=== PATIENT | female | born 1965 | race Caucasian/White ===

== ENCOUNTER 2018-11-13 16:12 | Inpatient (IN) | payer BC, OTHER ==
[~2018-11-13 16:12] MED LIST: BUPIVACAINE HCL/PF (5 MG/ML) 30 ML VIAL IJ ONE
[2018-11-13] MEDS ORDERED: SODIUM CHLORIDE 1,000 ML IV STA (16:17)
--- NOTE | 2018-11-13 16:34 | PDOC ---
History of Present Illness - General Stated Complaint: ABDOMINAL PAIN - History of Present Illness Initial Comments: 11/13/18 16:42 Ms. Nicholson is a 53 yo female w/ pmh of squamous cell skin removal (L arm), and s/p R oophorectomy for benign mass and 2 c-sections 20 and 25 years ago who presents for evaluation of acute appendicitis read on CT scan performed today for RLQ abdominal pain for 1 week. Patient reports pain level is very low currently. Has no other complaints at this time. Last meal was this morning at 0830. The patient denies chest pain, shortness of breath, headache and dizziness. Denies fever, chills, nausea, vomit, diarrhea and constipation. Denies dysuria, frequency, urgency and hematuria. Past History - Past Medical History Allergies/Adverse Reactions: Allergies Allergy/AdvReac Type Severity Reaction Status Date / Time No Known Allergies Allergy Unverified 12/23/13 20:38 Home Medications: Ambulatory Orders NK [No Known Home Medication] 11/13/18 - Suicide/Smoking/Psychosocial Hx Smoking History: Never smoked Hx Alcohol Use: No Substance Use Type: None Review of Systems - Review of Systems Comments:: 11/13/18 16:53 GENERAL/CONSTITUTIONAL: No fever or chills. No weakness. HEAD, EYES, EARS, NOSE AND THROAT: No change in vision. No ear pain or discharge. No sore throat. CARDIOVASCULAR: No chest pain or shortness of breath RESPIRATORY: No cough, wheezing, or hemoptysis. GASTROINTESTINAL: +RLQ pain as described. No nausea, vomiting, diarrhea or constipation. GENITOURINARY: No dysuria, frequency, or change in urination. MUSCULOSKELETAL: No joint or muscle swelling or pain. No neck or back pain. SKIN: No rash NEUROLOGIC: No headache, vertigo, loss of consciousness, or change in strength/ sensation. ENDOCRINE: No increased thirst. No abnormal weight change HEMATOLOGIC/LYMPHATIC: No anemia, easy bleeding, or history of blood clots. ALLERGIC/IMMUNOLOGIC: No hives or skin allergy. *Physical Exam - Physical Exam Comments: 11/13/18 16:54 GENERAL: Awake, alert, and fully oriented, in no acute distress HEAD: No signs of trauma, normocephalic, atraumatic EYES: PERRLA, EOMI, sclera anicteric, conjunctiva clear ENT: Auricles normal inspection, hearing grossly normal, nares patent, oropharynx clear without exudates. Moist mucosa NECK: Normal ROM, supple, no lymphadenopathy, JVD, or masses LUNGS: No distress, speaks full sentences, clear to auscultation bilaterally HEART: Regular rate and rhythm, normal S1 and S2, no murmurs, rubs or gallops, peripheral pulses normal and equal bilaterally. ABDOMEN: +RLQ TTP. Soft, normoactive bowel sounds. No guarding, no rebound. No masses EXTREMITIES: Normal inspection, Normal range of motion, no edema. No clubbing or cyanosis. NEUROLOGICAL: Cranial nerves II through XII grossly intact. Normal speech, normal gait, no focal sensorimotor deficits SKIN: Warm, Dry, normal turgor, no rashes or lesions noted. ED Treatment Course - LABORATORY CBC & Chemistry Diagram: 11/13/18 16:30 11/13/18 16:30 Medical Decision Making - Medical Decision Making 11/13/18 16:54 Ms. Nicholson is a 53 yo female w/ pmh as descrive who presents with positive outside CT read of acute appendicitis. Patient pre-op workup started upon arrival. Surgery made aware and onsite quickly for evaluation. left to get images. 11/13/18 18:49 Images w/ patient at bedside. Patient admitted to surgery for operative management tonight. *DC/Admit/Observation/Transfer Diagnosis at time of Disposition: Appendicitis Qualifiers: Appendicitis type: acute appendicitis Acute appendicitis type: unspecified acute appendicitis type Qualified Code(s): K35.80 - Unspecified acute appendicitis - Discharge Dispostion Disposition: HOME Condition at time of disposition: Improved Decision to Admit order: Yes - Referrals - Patient Instructions - Post Discharge Activity
[2018-11-13 17:01] VITALS: BMI 30.1
[2018-11-13 17:03] LABS: BASO % 0.5 % (0-2.0); EOS % 0.7 % (0-4.5); HEMATOCRIT 42.2 % (32.4-45.2); HEMOGLOBIN 14.2 GM/dL (10.7-15.3); MCH 29.4 pg (25.7-33.7); MCHC 33.8 g/dl (32.0-36.0); MEAN PLT VOLUME 7.6 fl (7.5-11.1); MONO % 11.4 % (3.8-10.2); NEUT % 69.4 % (42.8-82.8); PLATELET COUNT 357 K/MM3 (134-434); RBC 4.84 M/mm3 (3.60-5.2); RDW 12.9 % (11.6-15.6); WHITE BLOOD COUNT 9.6 K/mm3 (4.0-10.0)
--- NOTE | 2018-11-13 17:03 | PDOC ---
Attending Attestation - Resident Resident Name: EarnestdoreneraquelBeRyan - ED Attending Attestation I have performed the following: I have examined & evaluated the patient, The case was reviewed & discussed with the resident, I agree w/resident's findings & plan - HPI HPI: 11/13/18 17:03 Ms. Nicholson is a 53 yo female w/ pmh of squamous cell skin removal (L arm), and s/p R oophorectomy for benign mass and 2 c-sections 20 and 25 years ago who presents for evaluation of acute appendicitis read on CT scan performed today for RLQ abdominal pain for 1 week. - Physicial Exam PE: 11/13/18 17:44 Agree with the resident's HPI and PE as documented in the electronic medical record. NAD, well appearing, EOMI, PERRL, nl conjunctiva, anicteric; neck supple. lungs clear, RRR, abdomen soft, RLQ tenderness to palp. Back nontender. BLOOM x4, no focal neuro deficits. No peripheral edema. normal color for ethnicity, WWP. - Medical Decision Making 11/13/18 17:44 hpi as documented VS reviewed, wnl CT a/p from outside rads with +appy Dr Mcclure consult, admit for appendectomy basic labs/preop workup initiated all unremarkable. analgesia, NPO, IV admit to Dr Mcclure for acute appy 11/13/18 17:45
[2018-11-13 17:13] LABS: INR 1.08 (0.83-1.09); PROTHROMBIN TIME (PATIENT) 12.8 SEC (9.7-13.0)
[2018-11-13 17:16] LABS: ACTIVATED PTT 35.9 SECONDS (25.2-36.5); MAGNESIUM 2.5 mg/dL (1.8-2.4)
[2018-11-13] MEDS ORDERED: ONDANSETRON 4 MG/2 ML VIAL IVPUSH PRN ×2 (17:17→21:13)
[2018-11-13] MEDS ORDERED: morphine SULFATE 4 MG/ML VIAL IVPUSH PRN ×2 (17:17→23:49)
[2018-11-13 17:21] LABS: BILIRUBIN,TOTAL 0.4 mg/dL (0.2-1); CALCIUM 9.4 mg/dL (8.5-10.1); CREATININE 0.8 mg/dL (0.55-1.3); POTASSIUM 3.8 mmol/L (3.5-5.1)
[2018-11-13] MEDS ORDERED: SODIUM CHLORIDE 1,000 ML IV SCH ×2 (17:30→23:49)
--- NOTE | 2018-11-13 17:38 | HP ---
Admitting History and Physical - Admission Chief Complaint: RLQ abdominal Pain History of Present Illness: 53yo female PMH squamous cell skin removal (L arm), and s/p R oophorectomy for benign mass and 2 c-sections 20 and 25 years ago presents with intermittent right lower quadrant abdominal pain for 1.5 weeks worsening today. Acute appendicitis read on CT scan performed today for RLQ abdominal pain for 1.5 weeks. Patient reports pain level is very low currently. Has no other complaints at this time. Last meal was this morning at 0830. We were called to assess. History Source: Patient, Medical Record Limitations to Obtaining History: No Limitations - Past Surgical History Past Surgical History: Yes: (X 2), Oopherectomy (right) - Smoking History Smoking history: Never smoked Have you smoked in the past 12 months: No - Alcohol/Substance Use Hx Alcohol Use: No Home Medications - Allergies Allergies/Adverse Reactions: Allergies Allergy/AdvReac Type Severity Reaction Status Date / Time No Known Allergies Allergy Unverified 12/23/13 20:38 - Home Medications Home Medications: Ambulatory Orders NK [No Known Home Medication] 11/13/18 Review of Systems - Review of Systems Constitutional: reports: Chills. denies: Fever, Loss of Appetite Eyes: denies: Blind Spots, Recent Change in Vision HENT: denies: Difficult Swallowing, Throat Pain Neck: denies: Decreased ROM, Tenderness Cardiovascular: denies: Chest Pain, Palpitations Respiratory: denies: Cough, SOB Gastrointestinal: reports: Abdominal Pain. denies: Constipation, Diarrhea Genitourinary: denies: Dysuria, Flank Pain, Menses Breasts: reports: No Symptoms Reported. denies: Pain Integumentary: denies: Eczema, Pallor, Rash Neurological: denies: Seizure, Syncope Endocrine: denies: Unexplained Weight Gain, Unexplained Weight Loss Hematology/Lymphatic: denies: Easily Bruised, Excessive Bleeding Psychiatric: denies: Anxiety, Depression Physical Examination Vital Signs: Vital Signs Temperature 98.5 F 11/13/18 16:12 Pulse Rate 80 11/13/18 16:12 Respiratory Rate 16 11/13/18 16:12 Blood Pressure 130/80 11/13/18 16:12 O2 Sat by Pulse Oximetry (%) 100 11/13/18 16:12 Constitutional: Yes: Well Nourished, Calm, Mild Distress Eyes: Yes: Conjunctiva Clear, EOM Intact HENT: Yes: Atraumatic, Normocephalic Neck: Yes: Supple, Trachea Midline Cardiovascular: Yes: Regular Rate and Rhythm, S1, S2 Respiratory: Yes: Regular, CTA Bilaterally Gastrointestinal: Yes: Normal Bowel Sounds, Soft, Tenderness (RLQ, -psoas sign) , Tenderness, Rebound. No: Rectal Bleeding, Tenderness, Epigastrium, Vomiting ...Rectal Exam: Yes: Sphincter Tone Normal. No: Hemorrhoids/External, Mass Renal/: No: CVA Tenderness - Left, CVA Tenderness - Right Breast(s): No: Discharge from Nipple, Mass, Nipple Inversion Musculoskeletal: No: Muscle Pain, Muscle Weakness Extremities: No: Cool, Cyanosis Edema: No Peripheral Pulses WNL: Yes Peripheral Pulses: Left Radial: 2+, Right Radial: 2+, Left Doralis Pedis: 2+, Right Dorsalis Pedis: 2+, Left Femoral: 2+, Right Femoral: 2+ Neurological: Yes: Alert, Oriented Psychiatric: Yes: Alert, Oriented Labs: CBC, BMP 11/13/18 16:30 11/13/18 16:30 Imaging - Results Cat Scan: Pending, Report Reviewed, Image Reviewed (1.5cm edematous appendix with significnat fat stranding in the adjacent cecum) Problem List - Problems (1) Acute appendicitis with localized peritonitis without perforation Assessment/Plan: 53yo female with acute appendicititis with localized peritonitis, impending rupture NPO and IVF hydration IV antibiotics IV analgesia and antipyretic therapy Discussed with patient risks, benefits and alternatives of laparoscopic possible open appendectomy, including but not limited to bleeding, infection, injury to adjacent structures, leak or injury, intraabdominal abscess, incisional hernia, need for further procedures, ; alternatives include antibiotics, delayed or no surgery - risks of this include failure of nonoperative therapy, perforation, sepsis, recurrence, . Patient desires to proceed with operation - will take to OR for above. Informed consent signed for same. Thank you for the opportunity to participate in the care of this patient. Code(s): K35.30 - ACUTE APPENDICITIS WITH LOC PERITONITIS, W/O PERF OR GANGR Qualifiers: Appendicitis gangrene presence: without gangrene Appendicitis abscess presence: without abscess Qualified Code(s): K35.30 - Acute appendicitis with localized peritonitis, without perforation or gangrene (2) Abdominal pain in female patient Code(s): R10.9 - UNSPECIFIED ABDOMINAL PAIN (3) RLQ abdominal pain Code(s): R10.31 - RIGHT LOWER QUADRANT PAIN (4) RLQ abdominal tenderness Code(s): R10.813 - RIGHT LOWER QUADRANT ABDOMINAL TENDERNESS Qualifiers: Presence of rebound: present Qualified Code(s): R10.823 - Right lower quadrant rebound abdominal tenderness (5) Chronic appendicitis Code(s): K36 - OTHER APPENDICITIS
[2018-11-13] MEDS ORDERED: ACETAMINOPHEN INJECTION 100 ML IVPB ONE ×2 (18:37→23:40)
[2018-11-13] MEDS ORDERED: ACETAMINOPHEN 1000 MG/100 ML VIAL (NON FORMULARY) IVPB ONE (18:37)
[2018-11-13 19:20] LABS: URINE APPEARANCE CLEAR; URINE COLOR YELLOW; URINE GLUCOSE (UA) NEGATIVE (NEGATIVE)
[2018-11-13 19:21] LABS: URINE BILIRUBIN NEGATIVE (NEGATIVE); URINE KETONE TRACE (NEGATIVE); URINE NITRITE NEGATIVE (NEGATIVE); URINE PROTEIN NEGATIVE (NEGATIVE); URINE UROBILINOGEN 0.2 mg/dL (0.2-1.0)
[2018-11-13 19:22] LABS: URINE LEUK ESTERASE 1+ (NEGATIVE)
[2018-11-13 19:23] LABS: EPI CELLS 0.5 /HPF (0-5/HPF); HYALINE CASTS 0.73 /lpf (0-8); URINE BACTERIA 64.9 /hpf (NEGATIVE); URINE RBC 2.9 /hpf (0-4); URINE WBC 19.9 /hpf (0-5)
[2018-11-13] MEDS ORDERED: ACETAMINOPHEN 1000 MG/100 ML VIAL (NON FORMULARY) IVPB PRN ×2 (19:55→23:49)
--- NOTE | 2018-11-13 20:23 | OP ---
Operative Note - Note: Operative Date: 11/13/18 Pre-Operative Diagnosis: acute appendicitis with localized peritonitis Operation: laparoscopic appendectomy Findings: appendeix was densely adherent to the sidewall. base of cecum was stapled with 45mm endoGIA purple load Post-Operative Diagnosis: Same as Pre-op Surgeon: Yifan Mcclure Anesthesiologist/COMMISSIONER OF CONCILIATION: Rom Baker Anesthesia: General, Local Specimens Removed: appendix Estimated Blood Loss (mls): 15 Drains, Volume Out (mls): 200 (walton) Fluid Volume Replaced (mls): 1,300 Operative Report Dictated: Yes
[2018-11-13] MEDS ORDERED: LACTATED RINGERS SOLUTION 1,000 ML IV SCH ×2 (21:15→23:49)
[2018-11-13] MEDS ORDERED: MIDAZOLAM HCL 2 MG/2 ML SINGLE DOSE VIAL ONE (21:36)
[2018-11-13] MEDS ORDERED: ONDANSETRON 4 MG/2 ML VIAL ONE (22:17)
[2018-11-13] MEDS ORDERED: DEXAMETHASONE SOD PHOSPHATE 4 MG/1 ML VIAL ONE (22:17)
[2018-11-13] MEDS ORDERED: PROPOFOL 20 ML ONE ×2 (22:18)
[2018-11-13] MEDS ORDERED: GLYCOPYRROLATE 0.2 MG/1 ML VIAL ONE (22:26)
[2018-11-13] MEDS ORDERED: NEOSTIGMINE METHYLSULFATE 0.5 MG/1 ML - 10 ML MDV ONE (22:26)
[2018-11-13] MEDS ORDERED: DESFLURANE GAS 240 ML BOTTLE IH ONE (22:29)
[2018-11-13] MEDS ORDERED: BUPIVACAINE HCL/PF (5 MG/ML) 30 ML VIAL IJ ONE (23:15)
--- NOTE | 2018-11-14 09:59 | CON.ID ---
Consult Consult Specialty:: infectious diseases Referred by:: Reason for Consultation:: appendicitis - History of Present Illness Chief Complaint: abd pain History of Present Illness: 53yo female PMH squamous cell skin removal (L arm), and s/p R oophorectomy for benign mass and 2 c-sections 20 and 25 years ago presents with intermittent right lower quadrant abdominal pain for 1.5 weeks worsening today. Acute appendicitis read on CT scan performed today for RLQ abdominal pain for 1.5 weeks. Patient was seen by surgery and underwent appendectomy patient was started on levaquin and flagyl - History Source History Provided By: Patient Limitations to Obtaining History: No Limitations - Past Medical History ...LMP: 06/10/16 ...: No - Past Surgical History Past Surgical History: Yes: (X 2), Oopherectomy (right) - Alcohol/Substance Use Hx Alcohol Use: No - Smoking History Smoking history: Never smoked Have you smoked in the past 12 months: No Home Medications - Allergies Allergies/Adverse Reactions: Allergies Allergy/AdvReac Type Severity Reaction Status Date / Time No Known Allergies Allergy Unverified 12/23/13 20:38 - Home Medications Home Medications: Ambulatory Orders NK [No Known Home Medication] 11/13/18 Review of Systems - Review of Systems Constitutional: reports: No Symptoms Eyes: reports: No Symptoms HENT: reports: No Symptoms Neck: reports: No Symptoms Cardiovascular: reports: No Symptoms Respiratory: reports: No Symptoms Gastrointestinal: reports: Abdominal Pain Genitourinary: reports: No Symptoms Musculoskeletal: reports: No Symptoms Integumentary: reports: No Symptoms Neurological: reports: No Symptoms Endocrine: reports: No Symptoms Hematology/Lymphatic: reports: No Symptoms Psychiatric: reports: No Symptoms Physical Exam Vital Signs: Vital Signs Temperature 98.2 F 11/14/18 09:00 Pulse Rate 69 11/14/18 09:00 Respiratory Rate 18 11/14/18 09:00 Blood Pressure 120/74 11/14/18 09:00 O2 Sat by Pulse Oximetry (%) 100 11/14/18 09:00 Constitutional: Yes: Well Nourished, Calm, Mild Distress Cardiovascular: Yes: Regular Rate and Rhythm Respiratory: Yes: Regular, CTA Bilaterally Gastrointestinal: Yes: Soft, Hypoactive Bowel Sounds Musculoskeletal: Yes: WNL Extremities: Yes: WNL Wound/Incision: Yes: Clean/Dry Neurological: Yes: Alert, Oriented Psychiatric: Yes: Alert, Oriented Labs: CBC, BMP 11/13/18 16:30 11/13/18 16:30 Imaging - Results Chest X-ray: Report Reviewed, Image Reviewed Cat Scan: Report Reviewed, Image Reviewed Assessment/Plan Problem List - Problems (1) Acute appendicitis with localized peritonitis without perforation Code(s): K35.30 - ACUTE APPENDICITIS WITH LOC PERITONITIS, W/O PERF OR GANGR Qualifiers: Appendicitis gangrene presence: without gangrene Appendicitis abscess presence: without abscess Qualified Code(s): K35.30 - Acute appendicitis with localized peritonitis, without perforation or gangrene (2) Abdominal pain in female patient Code(s): R10.9 - UNSPECIFIED ABDOMINAL PAIN (3) RLQ abdominal pain Code(s): R10.31 - RIGHT LOWER QUADRANT PAIN (4) RLQ abdominal tenderness Code(s): R10.813 - RIGHT LOWER QUADRANT ABDOMINAL TENDERNESS Qualifiers: Presence of rebound: present Qualified Code(s): R10.823 - Right lower quadrant rebound abdominal tenderness (5) Chronic appendicitis Code(s): K36 - OTHER APPENDICITIS plan continue abx for now will await patient starting orally if tolerated orally can change to augmentin if completely clean surgery will stop abx
--- NOTE | 2018-11-14 10:18 | PN ---
Progress Note, Physician Chief Complaint: abdominal pain History of Present Illness: STable post operatively - Current Medication List Current Medications: Active Medications Acetaminophen (Ofirmev Injection -) 1,000 mg IVPB Q6H PRN PRN Reason: PAIN LEVEL 1-5 Last Admin: 11/13/18 23:45 Dose: 1,000 mg Metronidazole (Flagyl 500mg Premixed Ivpb -) 500 mg in 100 mls @ 100 mls/hr IVPB Q8H-IV CHERYL Last Admin: 11/14/18 09:04 Dose: 100 mls/hr Lactated Ringer's (Lactated Ringers Solution) 1,000 mls @ 75 mls/hr IV ASDIR CHERYL Last Admin: 11/14/18 00:30 Dose: 75 mls/hr Morphine Sulfate (Morphine Sulfate) 4 mg IVPUSH Q4H PRN PRN Reason: PAIN LEVEL 7 - 10 - Objective Vital Signs: Vital Signs Temperature 98.2 F 11/14/18 09:00 Pulse Rate 69 11/14/18 09:00 Respiratory Rate 18 11/14/18 09:00 Blood Pressure 120/74 11/14/18 09:00 O2 Sat by Pulse Oximetry (%) 100 11/14/18 09:00 Labs: CBC, BMP 11/13/18 16:30 11/13/18 16:30 INR, PTT INR 1.08 (0.83-1.09) 11/13/18 16:30 Problem List - Problems (1) Acute appendicitis with localized peritonitis without perforation Assessment/Plan: 53yo female with acute appendicititis with localized peritonitis, impending rupture POD#1 s/p lap appendectomy diet as tolerated ambulate continue oral antibiotcs discharge in AM . Code(s): K35.30 - ACUTE APPENDICITIS WITH LOC PERITONITIS, W/O PERF OR GANGR Qualifiers: Appendicitis gangrene presence: without gangrene Appendicitis abscess presence: without abscess Qualified Code(s): K35.30 - Acute appendicitis with localized peritonitis, without perforation or gangrene (2) Abdominal pain in female patient Code(s): R10.9 - UNSPECIFIED ABDOMINAL PAIN (3) RLQ abdominal pain Code(s): R10.31 - RIGHT LOWER QUADRANT PAIN (4) RLQ abdominal tenderness Code(s): R10.813 - RIGHT LOWER QUADRANT ABDOMINAL TENDERNESS Qualifiers: Presence of rebound: present Qualified Code(s): R10.823 - Right lower quadrant rebound abdominal tenderness (5) Chronic appendicitis Code(s): K36 - OTHER APPENDICITIS
[2018-11-14 11:37] LABS: BASO % 0.1 % (0-2.0); HEMATOCRIT 36.3 % (32.4-45.2); HEMOGLOBIN 12.6 GM/dL (10.7-15.3); LYMPH % 8.1 % (8-40); MCH 29.8 pg (25.7-33.7); MCHC 34.6 g/dl (32.0-36.0); MEAN CELL VOLUME 86.1 fl (80-96); MEAN PLT VOLUME 7.9 fl (7.5-11.1); MONO % 4.6 % (3.8-10.2); NEUT % 87.2 % (42.8-82.8); PLATELET COUNT 357 K/MM3 (134-434); RBC 4.22 M/mm3 (3.60-5.2); RDW 12.6 % (11.6-15.6)
--- NOTE | 2018-11-14 13:36 | EKG ---
Test Reason : Blood Pressure : / mmHG Vent. Rate : 084 BPM Atrial Rate : 084 BPM P-R Int : 142 ms QRS Dur : 080 ms QT Int : 350 ms P-R-T Axes : 034 020 039 degrees QTc Int : 413 ms NORMAL SINUS RHYTHM NORMAL ECG NO PREVIOUS ECGS AVAILABLE Confirmed by ALONZO HARVEY MD ([id number]) on 11/14/2018 1:36:42 PM Referred By: Confirmed By:ALONZO HARVEY MD
--- NOTE | 2018-11-14 13:43 | PN ---
Progress Note, Physician Chief Complaint: s/p lap appendectomy post op day one History of Present Illness: under general anesthesia - Current Medication List Current Medications: Active Medications Acetaminophen (Ofirmev Injection -) 1,000 mg IVPB Q6H PRN PRN Reason: PAIN LEVEL 1-5 Last Admin: 11/13/18 23:45 Dose: 1,000 mg Metronidazole (Flagyl 500mg Premixed Ivpb -) 500 mg in 100 mls @ 100 mls/hr IVPB Q8H-IV CHERYL Last Admin: 11/14/18 09:04 Dose: 100 mls/hr Lactated Ringer's (Lactated Ringers Solution) 1,000 mls @ 75 mls/hr IV ASDIR CHERYL Last Admin: 11/14/18 00:30 Dose: 75 mls/hr Morphine Sulfate (Morphine Sulfate) 4 mg IVPUSH Q4H PRN PRN Reason: PAIN LEVEL 7 - 10 - Objective Vital Signs: Vital Signs Temperature 98.2 F 11/14/18 09:00 Pulse Rate 69 11/14/18 09:00 Respiratory Rate 18 11/14/18 09:00 Blood Pressure 120/74 11/14/18 09:00 O2 Sat by Pulse Oximetry (%) 100 11/14/18 09:00 Constitutional: Yes: Well Nourished Cardiovascular: Yes: WNL Respiratory: Yes: WNL Gastrointestinal: Yes: WNL Labs: CBC, BMP 11/14/18 10:45 11/13/18 16:30 INR, PTT INR 1.08 (0.83-1.09) 11/13/18 16:30 Assessment/Plan No acute adverse effect of anesthetic, no further intervention by dept of anesthesiology
[2018-11-14] MEDS ORDERED: SODIUM CHLORIDE 1,000 ML IV SCH (18:23)
--- NOTE | 2018-11-15 10:19 | DS ---
Physical Examination Vital Signs: Vital Signs Temperature 98.1 F 11/15/18 06:00 Pulse Rate 63 11/15/18 06:00 Respiratory Rate 18 11/15/18 06:00 Blood Pressure 103/61 11/15/18 06:00 O2 Sat by Pulse Oximetry (%) 100 11/14/18 21:00 Findings/Remarks: stable, tolerating diet, complains of minimal rlq pain Constitutional: Yes: Well Nourished, No Distress, Calm Eyes: Yes: Conjunctiva Clear, EOM Intact HENT: Yes: Atraumatic, Normocephalic Neck: Yes: Supple, Trachea Midline Cardiovascular: Yes: Regular Rate and Rhythm, S1, S2 Respiratory: Yes: Regular, CTA Bilaterally Gastrointestinal: Yes: Normal Bowel Sounds, Soft, Tenderness (incisional) ...Rectal Exam: Yes: Deferred Renal/: No: CVA Tenderness - Left, CVA Tenderness - Right Musculoskeletal: No: Muscle Pain, Muscle Weakness Extremities: No: Cool, Cyanosis Edema: No Peripheral Pulses WNL: Yes Peripheral Pulses: Left Radial: 2+, Right Radial: 2+, Left Doralis Pedis: 2+, Right Dorsalis Pedis: 2+, Left Femoral: 2+, Right Femoral: 2+ Wound/Incision: Yes: Clean/Dry, Well Approximated Neurological: Yes: Alert, Oriented Psychiatric: Yes: Alert, Oriented Labs: CBC, BMP 11/14/18 10:45 11/13/18 16:30 Discharge Summary Reason For Visit: APPENDICITIS Current Active Problems Abdominal pain in female patient (Acute) Acute appendicitis with localized peritonitis without perforation (Acute) Appendicitis (Acute) Chronic appendicitis (Acute) RLQ abdominal pain (Acute) RLQ abdominal tenderness (Acute) Procedures: Principal: Laparoscopic appendectomy Hospital Course: Admitted for emergency surgery, uneventful procedure. stable for discharge home Condition: Improved - Instructions Diet, Activity, Other Instructions: Postoperative instructions: You had a laparoscopic appendectomy on 11/13/[address] Yifan Mcclure of [facility]. Activity: Resume your usual activities gradually, but no heavy exertion or lifting more than 10-15 pounds for 1 month. Remove dressings 48 hours after surgery; sticky tapes underneath will fall off by themselves. You may shower daily starting then, just pat the incision areas dry. No bath or swimming until skin incisions have healed. Eat lightly at first, but advance to your usual diet as tolerated. Pain: For pain, you may use and alternate Tylenol (acetaminophen) 1-2 pills and/ or ibuprofen 200 mg (1-3 pills) every 6 hours each as needed; this means that you can take one OR the other at 3-hour intervals. If you are prescribed a Tylenol/narcotic combination for severe pain, use it instead of plain Tylenol as needed and switch back when your pain starts decreasing. Do not take more than 4000mg of acetaminophen in a day. Take medications as prescribed or indicated on the labeling. Follow-up: Call Dr. Mcclure' office at [phone] to make your postop appointment (Saturday in approximately 2 weeks after surgery). Clinic is held in the [facility] on the first floor of [facility]. Call the office if you have: * increasing pain not responsive to pain medication * fever of 101F or higher * vomiting * unusual or increasing bleeding or drainage from wounds * increasing redness or swelling at wound sites * inability to urinate Also, see your primary medical doctor within 1-2 weeks. Disposition: HOME - Home Medications Comprehensive Discharge Medication List: Ambulatory Orders NK [No Known Home Medication] 11/13/18
--- NOTE | 2018-11-15 11:26 | PN ---
Progress Note, Physician History of Present Illness: stable doing well - Current Medication List Current Medications: Active Medications Acetaminophen (Ofirmev Injection -) 1,000 mg IVPB Q6H PRN PRN Reason: PAIN LEVEL 1-5 Last Admin: 11/13/18 23:45 Dose: 1,000 mg Metronidazole (Flagyl 500mg Premixed Ivpb -) 500 mg in 100 mls @ 100 mls/hr IVPB Q8H-IV CHERYL Last Admin: 11/15/18 10:11 Dose: 100 mls/hr Morphine Sulfate (Morphine Sulfate) 4 mg IVPUSH Q4H PRN PRN Reason: PAIN LEVEL 7 - 10 - Objective Vital Signs: Vital Signs Temperature 98.1 F 11/15/18 06:00 Pulse Rate 63 11/15/18 06:00 Respiratory Rate 18 11/15/18 06:00 Blood Pressure 103/61 11/15/18 06:00 O2 Sat by Pulse Oximetry (%) 100 11/14/18 21:00 Constitutional: Yes: No Distress, Calm Cardiovascular: Yes: Regular Rate and Rhythm Respiratory: Yes: Regular, CTA Bilaterally Gastrointestinal: Yes: Soft, Hypoactive Bowel Sounds, Tenderness (at the operated site) Musculoskeletal: Yes: WNL Extremities: Yes: WNL Neurological: Yes: Alert, Oriented Psychiatric: Yes: Alert, Oriented Labs: CBC, BMP 11/14/18 10:45 11/13/18 16:30 INR, PTT INR 1.08 (0.83-1.09) 11/13/18 16:30 Assessment/Plan Problem List - Problems (1) Acute appendicitis with localized peritonitis without perforation Code(s): K35.30 - ACUTE APPENDICITIS WITH LOC PERITONITIS, W/O PERF OR GANGR Qualifiers: Appendicitis gangrene presence: without gangrene Appendicitis abscess presence: without abscess Qualified Code(s): K35.30 - Acute appendicitis with localized peritonitis, without perforation or gangrene (2) Abdominal pain in female patient Code(s): R10.9 - UNSPECIFIED ABDOMINAL PAIN (3) RLQ abdominal pain Code(s): R10.31 - RIGHT LOWER QUADRANT PAIN (4) RLQ abdominal tenderness Code(s): R10.813 - RIGHT LOWER QUADRANT ABDOMINAL TENDERNESS Qualifiers: Presence of rebound: present Qualified Code(s): R10.823 - Right lower quadrant rebound abdominal tenderness (5) Chronic appendicitis Code(s): K36 - OTHER APPENDICITIS plan oral meds rest as per the team
[2018-11-15 15:03] VITALS: BP 105/62; PULSE 60; TEMP 98.2
--- NOTE | 2018-11-18 12:42 | OP ---
DATE OF OPERATION: 11/13/2018 PREOPERATIVE DIAGNOSIS: Acute appendicitis with localized peritonitis. POSTOPERATIVE DIAGNOSIS: Acute appendicitis with localized peritonitis. PROCEDURE: Laparoscopic appendectomy. ATTENDING SURGEON: Yifan Mcclure MD RN SURGICAL PCU: No one. ANESTHESIA: Rom Baker MD ANESTHESIA TYPE: General and local. Local consisted of 0.5% Marcaine, a total of 10 mL, given at the port sites. ESTIMATED BLOOD LOSS: 15 mL. IV FLUID ADMINISTERED: 1300 mL. DRAINS: Wilkes drained 200 mL during the duration of the case, which was removed postoperatively. SPECIMEN: Appendix, which appeared to be viable. FINDINGS: Appendix was densely adherent to the sidewall. The base of the cecum was stapled with a MARIA EUGENIA purple load. INDICATION: The patient was a 53-year-old female, presenting with 2 weeks of abdominal pain, which went undiagnosed for acute appendicitis. On presentation, she had leukocytosis which was mild and normal but CAT scan that confirmed the presence of poorly-defined appendix with adjacent inflammatory process without sign of abscess formation. She was counseled regarding risks, benefits, alternatives to surgical appendectomy, signed informed consent and was taken for the procedure. PROCEDURE: The patient was brought to the operating room. She was placed in supine position on the operating table. Lower extremities had SCDs placed to compression. The left arm was tucked and the right arm extended 90 degrees perpendicular to the body's midline axis. The patient was induced with general anesthesia. She was endotracheally intubated. The anterior abdominal wall was prepped and draped in standard fashion, blocking the lower abdomen for possible open entry. A formal timeout was completed, identifying the operative site and procedure. We began first with a supraumbilical Sapphire entry at the abdomen. A 15 blade scalpel was used to incise the skin and it was deepened and widened to the subcutaneous tissue with Bovie cautery to the abdominal fascia, which was then elevated into wound. A blunt entry was made into the abdomen and a finger was used to clear the abdominal viscera from adherence to the anterior wall. An 0 Vicryl stitch was then laid in as a ipmiia-ch-alpmu across to ablate the port site postoperatively. We then installed a 12-mm Sapphire port in the abdomen and established a pneumoperitoneum at 15 mmHg. We began first with patient in the steep Trendelenburg, additional port placement at the suprapubic position and the left lower quadrant. We then began to explore the area of the base of the cecum. The taeniae coli was used to identify the base of the appendix, which appeared densely adherent to the sidewall and the cecum. A plane was developed to allow for a 45-mm Endo MARIA EUGENIA stapler with a purple load to fire across the base of the appendix at the cecum. We then used a LigaSure device and [place] dissector to dissect the remainder of the mesoappendix, which appeared quite inflamed, away from the sidewall. Hemostasis was obtained throughout, and after dissection, the appendix was then retrieved from the umbilical port using an EndoCatch bag. Once removed from the abdomen, it was sent off for additional pathologic diagnosis. The patient was stable throughout the procedure. Port sites were removed under direct visualization after surgical hemostasis was assured. The patient returned to recovery in stable condition after the umbilical port was tied and the skin was closed and Dermabond was placed as a dressing, after the skin was cleaned. Instrument counts were correct. The patient was stable throughout. MD LOIS Kilpatrick/[id number]
--- NOTE | 2018-11-18 20:36 | PATH ---
Surgical Pathology Report Patient Name: WIN KNIGHT Med. Rec. #: [id number] /Age/Gender: 1965 (Age: 53) / F Account: [id number] Location: [facility] MED/SURG Taken: 11/13/2018 Received: 11/14/2018 Reported: 11/18/2018 Physicians: PHYSICIAN EMERGENCY DEPT Specimen(s) Received APPENDIX Clinical History Appendicitis Final Diagnosis APPENDIX, LAPAROSCOPIC APPENDECTOMY: ACUTE APPENDICITIS AND PERIAPPENDICITIS. Electronically Signed Migdalia Velasquez M.D. Gross Description Received in formalin labeled "appendix," are 2 portions of a markedly torn and disrupted appendix measuring 1.8 and 4.0 cm in length. The outer surface is marquez-dunaway with attached exudate and multifocal defects. The lumen appears occluded. The wall of the appendix measures 0.2 cm in thickness. Office Services Assistant sections are submitted in one cassette. /11/17/2018 saudi11/17/2018
== END 2018-11-15 13:35 | disposition home or self-care (01) | DRG 343 ==
LOC: JER 16:12 → JERBED 17:03 → J7W 19:22
PROC: 0DTJ4ZZ Resection of Appendix, Percutaneous Endoscopic Approach (ICD-10-PCS; principal; 2018-11-13 22:00)
DX: K35.30 Acute appendicitis with localized peritonitis, without perforation or gangrene (principal); R10.31 Right lower quadrant pain
CPT/HCPCS: 36415; 80053; 81003; 83690; 83735; 84703; 85025; 85610; 85730; 86850; 86900; 86901; 87086; 88304-TC; 93005; 93010; 94760; 99284-25; J0131; J7030

== ENCOUNTER 2022-08-18 07:54 | Emergency (ER) | payer BC ==
[2022-08-18 08:04] VITALS: BP 135/90; PULSE 67; RESP 17; TEMP 98.4; BMI 28.3
[2022-08-18] MEDS ORDERED: DIPHTH,PERTUSS(ACELL),TET 0.5 ML DISP.SYRIN IM ONE ×2 (08:47→09:02)
[2022-08-18] MEDS ORDERED: ACETAMINOPHEN 325 MG TABLET (FP) PO ONE (08:47)
[2022-08-18] MEDS ORDERED: ACETAMINOPHEN 325 MG TABLET (FP) ONE (09:02)
== END 2022-08-18 11:10 | disposition home or self-care (01) ==
LOC: JER 07:54 → JERFT 07:54
PROC: 0HQFXZZ Repair Right Hand Skin, External Approach (ICD-10-PCS; principal; 2022-08-18)
PROC: 3E0234Z Introduction of Serum, Toxoid and Vaccine into Muscle, Percutaneous Approach (ICD-10-PCS; 2022-08-18)
DX: S61.211A Laceration without foreign body of left index finger without damage to nail, initial encounter (principal); W25.XXXA Contact with sharp glass, initial encounter; Y93.G1 Activity, food preparation and clean up
CPT/HCPCS: 73130-TC-RT-FY; 90715; 99283-25